=== PATIENT | female | born 1940 | race Caucasian/White ===

== ENCOUNTER 2017-10-20 01:03 | Observation (INO) ==
[2017-10-20] MEDS ORDERED: 0.9 % Sodium Chloride 500 ML IVC ONE (01:23)
[2017-10-20] MEDS ORDERED: Aspirin 81 MG TAB.CHEW PO ONE (01:23)
[2017-10-20 01:30] LABS: Basophils % 0.3 %; Eosinophils # 0.1 K/mcL (0.0-0.6); Eosinophils % 1.2 %; Hematocrit 41.2 % (35.3-44.9); Hemoglobin 13.6 g/dL (11.5-15.4); Immature Granulocytes % 0.2 % (0-4); Lymphocytes % 32.1 %; Mean Corpuscular Hemoglobin 30.8 pg (28.0-33.3); Mean Corpuscular Volume 93.2 fL (83.0-100.0); Mean Platelet Volume 9.9 fL (9.4-12.4); Monocytes # 0.7 K/mcL (0.0-1.3); Monocytes % 7.7 %; Neutrophils # 5.5 K/mcL (1.6-8.9); Platelet Count 268 K/mcL (140-400); Red Blood Count 4.42 M/mcL (3.82-4.97); Red Cell Distribution Width 13.2 % (11.5-14.5); Segmented Neutrophils % 58.5 %
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
[2017-10-20 01:37] LABS: Prothrombin Time 10.8 Seconds (9.4-12.1)
[2017-10-20 01:40] LABS: Activated Partial Thrombo Time 24.6 Seconds (26.0-36.0); BUN/Creatinine Ratio 10 (6-26); Blood Urea Nitrogen 8 mg/dL (8-23); Calcium 9.4 mg/dL (8.6-10.3); Carbon Dioxide 25 mEq/L (23-29); Chloride 110 mEq/L (98-107); Glucose 108 mg/dL (70-105); Osmolality,Calculated 293 (280-300); Potassium 3.5 mEq/L (3.5-5.1); Sodium 142 mEq/L (136-145); eGFR For African Americans > 60 (> 60); eGFR For Non-African Americans > 60 (> 60)
[2017-10-20] MEDS ORDERED: Aspirin 81 MG TAB.CHEW PO STA (02:01)
[2017-10-20 02:02] LABS: Bilirubin,Urine Negative (Negative); Blood,Urine Negative (Negative); Clarity,Urine Clear (Clear); Color,Urine Yellow (Yellow); Glucose,Urine (UA) Normal (Normal); Ketones,Urine Negative (Negative); Leukocyte Esterase,Urine Negative (Negative); Nitrite,Urine Negative (Negative); PH,Urine 7.5 pH Units (5.0-8.0); Protein,Urine Negative (Neg-Trace); Urobilinogen,Urine Normal (Normal)
[2017-10-20] MEDS: Nitroglycerin 0.4 MG TAB.SUBL SL PRN ×2 (03:18→03:24)
[2017-10-20] MEDS ORDERED: Nitroglycerin 1 INCH/GM PACKET TP ONE (03:42)
--- NOTE | 2017-10-20 04:06 | Internal Med History&Physical ---
Date of Encounter: 10/20/17 Time of Encounter: 04:01 Assessment and Plan (1) Hypertensive emergency Current visit: Yes Status: Acute improved with nitro in the ED continue lisinopril and inderal in the a.m avoid lowering BP any further now. Will decrease BP slowly Depending on BP in 24-48 hours, may benefit from additional BP meds (2) Chest pain Current visit: Yes Status: Acute likely related to HTN above. 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 Chavez is a 76 year old female who presents with uncontrolled HTN with CP suspicious for HTN emergency. She has a hx of labile BP and had been taken off lisinopril 40 QD for the last several months due to low normal BP. However, her BP has recently started to climb again in the last 2 weeks which led to her PCP restarting her on lisinopril 40mg QD since the last few days. She takes her BP regularly with most recent reading 150-160 SBP /80-90 DBP. She went to an urgent care several days ago for high BP and was advised to go to the ED if her BP reading remains high again. This past evening at bedtime, she took her BP measuring 180/125. While en-route to the ED, she developed sternal chest tightness measuring 6/10 in intensity. No radiation. Feels like it catches the breathe on inspiration. She was given nitro in the ED which helped the pain and her BP - brought it down to 130 SBP She also takes inderal for fast HR She denies personal or family hx of CAD EKG personally reviewed with rate 67, NSR, LVH features CT/CT angio chest IMPRESSION: 1. No pulmonary embolism. 2. Mild atelectasis in both lower lobes. The lungs are otherwise clear. CT/CT abd pelvis w iv no oral IMPRESSION: No significant abnormalities in the abdomen or pelvis. XR/XR chest 1V portable IMPRESSION: No significant findings in the chest. XR/XR chest 1V portable IMPRESSION: No significant findings in the chest. Past Med Surg Social Fam HX - Past Medical History Medical history: arthritis, diabetes, hyperlipidemia, hypertension, other Psychiatric history: no psych history - Past Surgical History Surgical History: cholecystectomy, hysterectomy, orthopedic, other, sinus surgery - Social History Smoking Status: Never smoker Smokeless Tobacco Status: No Alcohol use: none Drug use: none Internal Medicine - H&P: Meds 8Hr Arthritis Pain 10/17/17 [History] Aspirin 10/17/17 [History] Baby Vitamin D3 10/17/17 [History] Bactroban Oint 10/17/17 [History] Claritin 10/17/17 [History] Flomax 10/17/17 [History] Furosemide [Lasix] 10 mg PO QAM #10 tablet 10/17/17 [Rx] Gabapentin 10/17/17 [History] Inderal LA 10/17/17 [History] [place] 5-325 mg 10/17/17 [History] Promethazine 10/17/17 [History] Protonix 10/17/17 [History] Simvastatin 10/17/17 [History] Stool Softener 10/17/17 [History] Topamax 10/17/17 [History] metFORMIN 10/17/17 [History] 3 Allergy/AdvReac Type Severity Reaction Status Date / Time Chlorothiazide [From Diuril] AdvReac Migraine Verified 10/17/17 19:28 All Systems PM: A 10-system review of systems was performed and is negative for pertinent findings except as documented above in the HPI. Review of systems: ROS 14 point review of systems reviewed as best as possible given presentation. Pertinent positive or negative as per HPI or otherwise reviewed as negative - Constitutional Vitals: Temp Pulse Resp BP Pulse Ox 97.6 F 79 18 152/98 97 10/20/17 01:04 10/20/17 03:28 10/20/17 03:28 10/20/17 03:28 10/20/17 03:28 Exam: General - AAO x 3 Psych - Appropriate affect/speech. No agitation Eyes - MARA. Eye lids intact. No scleral icterus Neuro - No gross peripheral or central neuro deficits on inspection Heart - Sinus. RRR. S1 and S2 present. No added HS/murmurs appreciated. No elevated JVD appreciated. Lung - Adequate air entry b/l, No crackles/wheezes appreciated GI - Soft, non-tender. No hepatosplenomegaly/ascites. BS+ - No CVA/suprapubic tenderness or palpable bladder distension Skin - Intact. No rash/petechiae/ecchymosis. Warm extremities Internal Med - H&P Results - Labs CBC & Chem 7: 10/20/17 01:18 10/20/17 01:18
[2017-10-20] MEDS ORDERED: Naloxone 0.4 MG/ML INJ IVP PRN (04:13)
[2017-10-20] MEDS ORDERED: Dextrose Gel 15 GM/37.5 ML TUBE PO PRN ×2 (04:15)
[2017-10-20] MEDS ORDERED: D5% in Water 1,000 ML IVC PRN (04:15)
[2017-10-20] MEDS ORDERED: *HR* Dextrose 50 % in Water (Syg) 50 ML SYRINGE IVP PRN (04:15)
[2017-10-20] MEDS: Insulin LISPRO 300 UNITS/3 ML VIAL SQ SCH ×3 (09:05→16:32)
[2017-10-20] MEDS: Lisinopril 20 MG TABLET PO SCH (09:23)
[2017-10-20] MEDS: Propranolol LA (24 HR) 60 MG CAP.SA.24H PO SCH (09:23)
[2017-10-20] MEDS ORDERED: Regadenoson 0.4 MG/5 ML SYRINGE IVP ONE (11:11)
[2017-10-20] MEDS ORDERED: ALPRAZolam 0.25 MG TABLET PO PRN (15:38)
--- NOTE | 2017-10-20 15:45 | Event Note ---
Date of Encounter: 10/20/17 Time of Encounter: 15:42 Seen and examined at bedside. Patient denies chest pain at home my exam. She reports increased home stressors and anxiety and she thinks that is intermittent her chest pain. Requesting something for anxiety. No chest pain or shortness of breath all my exam. 1. Chest pain: presented with chest pain that radiated to right arm. In the setting of hypertensive emergency. Serial troponins negative, EKG without acute ST changes. Nuclear stress test negative for ischemia or infarct. Suspect chest pain related to stress, hypertensive emergency. Chest pain improved as BP controlled. Echo pending. Continue ASA 2. Hypertensive emergency: Patient reports SBP's in 200s prior to arrival. BP improved with increasing home propanolol. Monitor BP and titrate PRN 3. Anxiety: Suspect this is contributing to chest pain and possibly increased blood pressure. Patient requesting anxiety medication. Trial low-dose PRN Xanax.
[2017-10-20] MEDS ORDERED: Ondansetron 4 MG/2 ML VIAL IVP PRN (17:45)
[2017-10-20] MEDS ORDERED: Gabapentin 300 MG CAPSULE PO SCH (21:00)
[2017-10-20] MEDS ORDERED: Insulin LISPRO 300 UNITS/3 ML VIAL SQ SCH (21:00)
[2017-10-21 05:49] LABS: Basophils % 0.4 %; Eosinophils # 0.1 K/mcL (0.0-0.6); Eosinophils % 1.2 %; Hematocrit 38.1 % (35.3-44.9); Hemoglobin 12.4 g/dL (11.5-15.4); Immature Granulocytes % 0.2 % (0-4); Lymphocytes # 2.3 K/mcL (0.6-4.6); Lymphocytes % 27.7 %; Mean Corpuscular HGB Conc 32.5 g/dL (31.6-35.5); Mean Corpuscular Hemoglobin 29.9 pg (28.0-33.3); Mean Corpuscular Volume 91.8 fL (83.0-100.0); Mean Platelet Volume 9.9 fL (9.4-12.4); Monocytes # 0.7 K/mcL (0.0-1.3); Monocytes % 8.1 %; Neutrophils # 5.2 K/mcL (1.6-8.9); Platelet Count 259 K/mcL (140-400); Red Blood Count 4.15 M/mcL (3.82-4.97); Red Cell Distribution Width 13.3 % (11.5-14.5); Segmented Neutrophils % 62.4 %
[2017-10-21 05:57] LABS: BUN/Creatinine Ratio 13 (6-26); Blood Urea Nitrogen 8 mg/dL (8-23); Carbon Dioxide 22 mEq/L (23-29); Chloride 112 mEq/L (98-107); Glucose 106 mg/dL (70-105); Osmolality,Calculated 291 (280-300); Potassium 3.2 mEq/L (3.5-5.1); Sodium 141 mEq/L (136-145); eGFR For African Americans > 60 (> 60); eGFR For Non-African Americans > 60 (> 60)
[2017-10-21 07:01] VITALS: BP 144/78
[2017-10-21] MEDS: Insulin LISPRO 300 UNITS/3 ML VIAL SQ SCH (08:12)
[2017-10-21] MEDS: Lisinopril 20 MG TABLET PO SCH (08:14)
[2017-10-21] MEDS: Propranolol LA (24 HR) 60 MG CAP.SA.24H PO SCH (08:14)
--- NOTE | 2017-10-21 09:03 | Discharge Summary ---
Date of Encounter: 10/21/17 Time of Encounter: 09:00 - Discharge Diagnosis (1) Chest pain Priority: Primary Status: Resolved Comments: presented with chest pain that in route to ED; in the setting of hypertension emergency. Chest CTA negative for pulmonary embolism. Serial troponins negative , EKG without acute ST changes. TTE with EF 60%, mild diastolic dysfunction and mild mitral/tricuspid regurgitation. Stress test negative for ischemia/ infarct. Chest pain resolved as BP improved. Suspect chest pain secondary to uncontrolled blood pressure and anxiety. No further cardiac workup indicated at this time. Can follow-up with PCP. Qualifiers: Chest pain type: precordial pain Qualified Code(s): R07.2 - Precordial pain (2) Hypertensive emergency Priority: Primary Status: Acute Comments: known hx hypertension labile BPs. Has been taken off lisinopril for the last several months due to normotensive BP. However BP had recently started to elevate therefore PCP resumed lisinopril 3 days prior to arrival. She monitor his BP at home and SBP was in the 180s therefore she came to ER. BP normalized with resuming home BP medication. Suspect anxiety is contributing to elevated BP. Patient reports BP tends to elevate in the evening time. Advised to continue home BP medication regimen, taking propanolol in the morning and lisinopril in the evening. Patient monitors BP regularly at home and advised to return to ED if SBP sustaining 180 or greater. Recommend follow-up with PCP within one week for BP recheck (3) Anxiety Priority: Primary Status: Acute Comments: Patient reports increased stress/anxiety at home. She thinks this is contributing to elevated blood pressure. Symptoms improved with low-dose Xanax. Has follow-up with PCP on 10/24/2017; will discharge with 4 day Rx to bridge her to PCP appointment. (4) Thyroid nodule Priority: Secondary Status: Chronic Comments: Incidental finding; chest CTA with 7mm right thyroid nodule. TSH normal. Can follow-up with PCP outpatient (5) Diabetes mellitus Priority: Secondary Status: Chronic Comments: per hx. Blood sugars controlled. Continue home diabetes medication regimen. Qualifiers: Diabetes mellitus type: type 2 Diabetes mellitus complication status: without complication Diabetes mellitus shelter insulin use: without licensed social worker use Qualified Code(s): E11.9 - Type 2 diabetes mellitus without complications - Discharge Medications Prescriptions: ALPRAZolam [Xanax 0.25 MG Tablet] 0.25 mg PO BID PRN #8 tablet PRN Reason: Anxiety Home Medications: Cyclosporine [Restasis] 1 drop OP BID 10/20/17 [History] Gabapentin [Neurontin] 600 mg PO DAILY 10/20/17 [History] Lisinopril [Zestril] 40 mg PO DAILY 10/20/17 [History] Loratadine [Claritin] 10 mg PO DAILY 10/20/17 [History] Metformin HCl [Metformin HCl ER] 500 mg PO BID 10/20/17 [History] Metoclopramide HCl 5 mg PO TID 10/20/17 [History] Pantoprazole Sodium 40 mg PO DAILY 10/20/17 [History] Pilocarpine HCl [Salagen] 5 mg PO TID 10/20/17 [History] Propranolol HCl [Innopran Xl] 80 mg PO DAILY 10/20/17 [History] Simvastatin [Zocor] 40 mg PO HS 10/20/17 [History] Solifenacin Succinate [Vesicare] 10 mg PO DAILY 10/20/17 [History] Tamsulosin [Flomax] 0.4 mg PO DAILY 10/20/17 [History] Topiramate [Topamax] 25 mg PO BID 10/20/17 [History] ALPRAZolam [Xanax 0.25 MG Tablet] 0.25 mg PO BID PRN #8 tablet 10/21/17 [Rx] Allergies/Adverse Reactions: 3 Allergy/AdvReac Type Severity Reaction Status Date / Time Chlorothiazide [From Diuril] AdvReac Migraine Verified 10/17/17 19:28 Procedures/tests Complete & Pending: Procedures Performed prior 72 hours Category Date Time Status NM mary ann perf SPECT multi [NM] Routine Exams 10/20/17 08:08 Taken EV echocardiogram Routine Y 10/20/17 08:08 Completed SP pharm nuclear stress Routine Y 10/20/17 08:07 Completed Date of admission: 10/20/17 03:26 Primary care physician: Ehsan Roman MD Discharging clinician: Leann Murphy Anticipated date of discharge: 10/21/17 - Patient Status Disposition: Home, Self-Care Condition: Good Functional capacity at discharge: independent ambulation Overall status at discharge: patient is back to baseline - Discharge Instructions Instructions: Alprazolam (By mouth), Chest Pain (DC), Generalized Anxiety Disorder (DC), Thyroid Nodules (DC), Hypertension (DC), Anxiety (DC) Follow Up With: Ehsan Roman MD [Primary Care Provider] - (Please call the office to make a follow up appt.) - Diet and Activity Activity: increase activity as tolerated Diet: diabetic diet, low fat, low cholesterol Interval History: Seen and examined ta bedside; says she had an uneventful night and slept well. She feels back to baseline and would like to discharge home today if possible. Says Lucy helped her sleep and help with anxiety. He reports blood pressure increases in the evening time; advised patient she could take Inderal in the morning and lisinopril in the evening or split lisinopril in half and take 20 mg in the morning and 20 mg in evening. Patient monitors blood pressure on a regular basis and advised to return to ED if SBP sustains greater than 180 and or chest pain/SOB recurs. Hospital course: See assessment and plan for hospital course - Time Spent with Patient Total time spent providing and/or coordinating discharge services: - Constitutional Vitals: Temp Pulse Resp BP Pulse Ox 98.0 F 72 16 144/78 96 10/21/17 06:54 10/21/17 06:54 10/21/17 06:54 10/21/17 06:54 10/21/17 06:54 General appearance: Present: A&O X 3, no acute distress - Head Head exam: Present: atraumatic, normocephalic - Eye Eye exam: Present: PERRL, conjuntiva pink, sclera anicteric Pupils: Present: PERRL - Neck Neck exam general surgery: Present: supple, trachea midline. Absent: lymphadenopathy - Respiratory Respiratory exam: Present: CTAB. Absent: accessory muscle use, rales, rhonchi, wheezes - Cardiovascular Cardiovascular exam: Present: RRR, +S1, +S2. Absent: diastolic murmur, gallop, rubs, systolic murmur - GI/Abdominal GI/Abdominal exam: Present: normal bowel sounds, soft, no peritoneal signs. Absent: distended, tenderness - Extremities Exam Extremities exam: Present: warm, radial pulses palpable and symmetrical. Absent : calf tenderness, cyanotic, pedal edema - Neurological Exam Neurological exam: Present: CN II-XII intact, oriented X3, no focal deficits. Absent: pronater drift, facial droop, speech deficit - Skin Skin exam: Present: dry, intact
[2017-10-21 10:00] LABS: Thyroid Stimulating Hormone 3.398 mcIU/mL (0.340-5.600)
--- NOTE | 2017-10-23 14:06 | Electrocardiograph Report ---
[address] [address] Test Date: 2017-10-20 Pat Name: Ting Chavez Department: [id number] Room: 3B45 Gender: F [employer] Firm: [employer] : [id number] Requested By: German Armenta Order Number: [id number] Reading MD: Real Herndon Measurements Intervals Valders Rate: 67 P: 64 CO: 175 QRS: 0 QRSD: 120 T: 6 QT: 386 QTc: 402 Interpretive Statements SINUS RHYTHM MODERATE INTRAVENTRICULAR CONDUCTION DELAY MINIMAL VOLTAGE CRITERIA FOR LVH, CONSIDER NORMAL VARIANT Electronically Signed On 10-23-2017 14:05:18 EST by Real Herndon
== END 2017-10-21 10:27 | disposition home or self-care (01) ==
LOC: 3BNU 01:03 → EMEROO 01:03 → 3BNU 04:18
PROVIDERS: ADMIT Internal Medicine Hematology & Oncology; ATTEND Registered Nurse

== ENCOUNTER 2019-03-31 07:35 | Observation (INO) ==
[2019-03-31] MEDS ORDERED: GI Cocktail 40 ML EACH PO ONE (08:07)
[2019-03-31 08:28] LABS: Basophils % 0.4 %; Eosinophils # 0.1 K/mcL (0.0-0.6); Eosinophils % 1.5 %; Hemoglobin 12.5 g/dL (11.5-15.4); Immature Granulocytes % 0.3 % (0-4); Lymphocytes # 1.9 K/mcL (0.6-4.6); Lymphocytes % 25.2 %; Mean Corpuscular HGB Conc 32.1 g/dL (31.6-35.5); Mean Corpuscular Hemoglobin 30.3 pg (28.0-33.3); Mean Corpuscular Volume 94.7 fL (83.0-100.0); Mean Platelet Volume 10.3 fL (9.4-12.4); Monocytes # 0.6 K/mcL (0.0-1.3); Monocytes % 7.9 %; Neutrophils # 4.8 K/mcL (1.6-8.9); Platelet Count 233 K/mcL (140-400); Red Blood Count 4.12 M/mcL (3.82-4.97); Red Cell Distribution Width 13.1 % (11.5-14.5); Segmented Neutrophils % 64.7 %; White Blood Count 7.3 K/mcL (4.3-11.1)
[2019-03-31 08:44] LABS: BUN/Creatinine Ratio 16 (6-26); Blood Urea Nitrogen 14 mg/dL (8-23); Calcium 9.3 mg/dL (8.6-10.3); Carbon Dioxide 26 mEq/L (23-29); Chloride 111 mEq/L (98-107); Glucose 109 mg/dL (70-105); Lipase 50 Units/L (11-82); Osmolality,Calculated 299 (280-300); Sodium 144 mEq/L (136-145); Troponin I < 0.03 ng/mL (< 0.04); eGFR For African Americans > 60 (> 60); eGFR For Non-African Americans > 60 (> 60)
--- NOTE | 2019-03-31 08:55 | Emergency Department Note ---
Disposition Clinical Impression: Atypical chest pain Chest pain Qualifiers: Chest pain type: unspecified Qualified Code(s): R07.9 - Chest pain, unspecified Disposition: Home, Self-Care Condition: Fair Referrals: Ehsan Roman MD [Primary Care Provider] - Forms: ED Satisfaction Letter Time of Disposition: 09:57 Chest Pain HPI - General Chief Complaint: ED Chest Pain Stated Complaint: CP Time Seen by Provider: 03/31/19 07:49 Source: patient Mode of arrival: ambulatory Limitations: no limitations Vital Signs Reviewed: Yes Nursing Notes Reviewed: Yes - History of Present Illness HPI Narrative: 78-year-old female presented to the emergency department complaining of chest pain. She says is in the center of her chest going up into her throat. Said it woke her up from sleep around 2 AM. She says that the pain is described as 6 out of 10 comes and goes currently right now she is not having it. She describes as a burning sensation. Does have history of pancreatitis from unknown causes said this does not feel like that. She does have history of ACS has had a catheter but no stent placement. Said does not feel like that. She has not been a long car rides or long plane rides. She does not have any history of pulmonary embolisms back in 1970 did have a DVT but otherwise has had no other problems this was a provoked due to hospitalization. She is not on any hormones no cancer diagnoses. Does have history of hypertension as well as diabetes. Otherwise patient has no other complaints at this time. Does not change with exertion. She is not short of breath. Severity scale (1-10): 6 - Related Data Home Medications Medication Instructions Recorded Confirmed Cyclosporine [Restasis] 1 drop OP BID 10/20/17 10/20/17 Gabapentin [Neurontin] 600 mg PO DAILY 10/20/17 10/20/17 Lisinopril [Zestril] 40 mg PO DAILY 10/20/17 10/20/17 Loratadine [Claritin] 10 mg PO DAILY 10/20/17 10/20/17 Metformin HCl [Metformin ER 500 mg PO BID 10/20/17 10/20/17 Gastric] Metoclopramide HCl 5 mg PO TID 10/20/17 10/20/17 Pantoprazole Sodium 40 mg PO DAILY 10/20/17 10/20/17 Pilocarpine HCl [Salagen] 5 mg PO TID 10/20/17 10/20/17 Propranolol HCl [Innopran Xl] 80 mg PO DAILY 10/20/17 10/20/17 Simvastatin [Zocor] 40 mg PO HS 10/20/17 10/20/17 Solifenacin Succinate [Vesicare] 10 mg PO DAILY 10/20/17 10/20/17 Tamsulosin [Flomax] 0.4 mg PO DAILY 10/20/17 10/20/17 Topiramate [Topamax] 25 mg PO BID 10/20/17 10/20/17 Previous Rx's Medication Instructions Recorded ALPRAZolam [Xanax 0.25 MG Tablet] 0.25 mg PO BID PRN #8 tablet 10/21/17 Allergies Allergy/AdvReac Type Severity Reaction Status Date / Time Chlorothiazide [From Diuril] AdvReac Migraine Verified 10/17/17 19:28 All systems ED: reviewed and negative except as stated. Review of Systems: As Per HPI Chest Pain PMH - Past Medical History Medical history: Reports: arthritis, diabetes, hyperlipidemia, hypertension Surgical history: Reports: cholecystectomy, hysterectomy, orthopedic, other, sinus surgery Psychiatric history: Reports: no psych history DIRECTOR [employer] history: Reports: non-contributory - Social History Smoking Status: Never smoker Alcohol use: Reports: none Drug use: Reports: none Physical Exam - General Limitations: no limitations General appearance: alert, in no apparent distress - Head Head exam: atraumatic, normocephalic, normal inspection - Eye Eye exam: Present: normal appearance, PERRL, EOMI - ENT ENT exam: normal exam, normal oropharynx, mucous membranes moist - Neck Neck exam: Present: normal inspection, full ROM, trachea midline - Chest Chest inspection: Present: normal inspection, symmetric chest wall rise - Respiratory Respiratory exam: Present: normal lung sounds bilaterally - Cardiovascular Cardiovascular exam: Present: regular rate, normal rhythm, normal heart sounds - Abdominal Exam Abdominal exam: Present: soft, Non-Tender, normal bowel sounds. Absent: tenderness, distention, guarding, rebound, rigidity - Extremities Exam Extremities exam: Present: normal inspection, full ROM. Absent: tenderness, pedal edema - Back Exam Back exam: Present: normal inspection, full ROM. Absent: tenderness, CVA tenderness (R), CVA tenderness (L) - Neurological Exam Neurological exam: Present: alert, oriented X3 - Skin Skin exam: Present: warm, dry, intact, normal color Course Course Narrative: Due to patient's history of finger otitis media lipase was CBC BMP troponin with the normal chest pain workup including EKG and chest x-ray. Patient okay with this plan. We will give patient GI cocktail as this seems to be reflux in etiology. Disposition pending results. Vital Signs Temperature 98.1 F 03/31/19 07:43 Pulse Rate 80 03/31/19 07:43 Respiratory Rate 18 03/31/19 07:43 Blood Pressure 175/109 03/31/19 07:43 O2 Sat by Pulse Oximetry 96 03/31/19 07:43 Temperature 98.1 F 03/31/19 07:43 Pulse Rate 68 03/31/19 08:58 Respiratory Rate 18 03/31/19 08:58 Blood Pressure 168/73 03/31/19 08:58 O2 Sat by Pulse Oximetry 98 03/31/19 08:58 Oxygen Delivery Oxygen Delivery Room Air Chest Pain - [facility] Narrative Medical decision making narrative: 78-year-old female presents to the emergency room with chest pain. She was given aspirin as well as nitroglycerin. She also received a GI cocktail as she was unsure if this is reflux in nature. EKG had no acute changes. Troponin was negative. Due to patient's history of diabetes as well as hypertension and the story of it waking her up from sleep and worsen or she exerts herself. I feel that admission is warranted. Patient agrees and said that she does want to be admitted. She does have heart score 5. I spoke with the hospitalist Dr. Hurtado who agreed to admit the patient to their service. Patient admitted in stable condition. Chest X-Ray 03/31/19 07:59 IMPRESSION: No evidence for acute cardiopulmonary process. D/ / Nils Herrera MD / Nils Herrera MD Interpreting Provider: Nils Herrera MD - Medical Records Medical records reviewed: Yes I reviewed the patient's medical records. - Lab Data Lab results reviewed: Yes I reviewed the patient's lab results. Result diagrams: 03/31/19 08:04 03/31/19 08:04 Lab Results 03/31/19 03/31/19 Range/Units 08:04 08:04 WBC 7.3 (4.3-11.1) K/mcL RBC 4.12 (3.82-4.97) M/mcL Hgb 12.5 (11.5-15.4) g/dL Hct 39.0 (35.3-44.9) % MCV 94.7 (83.0-100.0) fL MCH 30.3 (28.0-33.3) pg MCHC 32.1 (31.6-35.5) g/dL RDW 13.1 (11.5-14.5) % Plt Count 233 (140-400) K/mcL MPV 10.3 (9.4-12.4) fL Immature Gran % 0.3 (0-4) % Seg Neutrophils % 64.7 % Lymphocytes % 25.2 % Monocytes % 7.9 % Eosinophils % 1.5 % Basophils % 0.4 % Neutrophils # 4.8 (1.6-8.9) K/mcL Lymphocytes # 1.9 (0.6-4.6) K/mcL Monocytes # 0.6 (0.0-1.3) K/mcL Eosinophils # 0.1 (0.0-0.6) K/mcL Basophils # 0.0 (0.0-0.2) K/mcL Sodium 144 (136-145) mEq/L Potassium 4.0 (3.5-5.1) mEq/L Chloride 111 H (98-107) mEq/L Carbon Dioxide 26 (23-29) mEq/L BUN 14 (8-23) mg/dL Creatinine 0.88 (0.60-1.20) mg/dL Est GFR ( Amer) > 60 (> 60) Est GFR (Non-Af Amer) > 60 (> 60) BUN/Creatinine Ratio 16 (6-26) Glucose 109 H (70-105) mg/dL Calculated Osmolality 299 (280-300) Calcium 9.3 (8.6-10.3) mg/dL Troponin I < 0.03 (< 0.04) ng/mL Lipase 50 (11-82) Units/L - Radiology Data Radiology results reviewed: Yes I reviewed the patient's radiology results. - EKG Data EKG attestation: Yes I reviewed and interpreted this EKG. EKG results narrative: EKG done at 0 741 review myself and attending shows sinus bradycardia at a rate of 59, IL interval 193, QRS 128, QTC 419. No acute ST changes no acute T-wave changes no other signs of ischemia. Does have right bundle-branch block no other blocks no hypertrophy or heart strain. No WPW/forgot her/HOCM. Unchanged when compared with old EKG done 10/20/17 Heart Score - Score History: Moderately Suspicious EKG: Non Specific repolarisation Disturbance Age: Greater than 65 Risk Factors: 1-2 risk factors Troponin: Less than normal limit HEART Score Total: 5
--- NOTE | 2019-03-31 08:57 | Emergency Department Note ---
Disposition Clinical Impression: Atypical chest pain Chest pain Qualifiers: Chest pain type: unspecified Qualified Code(s): R07.9 - Chest pain, unspecified Disposition: Home, Self-Care Condition: Fair Referrals: Ehsan Roman MD [Primary Care Provider] - Forms: ED Satisfaction Letter Time of Disposition: 10:55 General Adult HPI - General Chief complaint: ED Chest Pain Stated complaint: CP Time Seen by Provider: 03/31/19 07:49 Source: patient Limitations: no limitations - History of Present Illness Pain Scale: 6 - Related Data Home Medications Medication Instructions Recorded Confirmed Cyclosporine [Restasis] 1 drop OP BID 10/20/17 03/31/19 Gabapentin [Neurontin] 600 mg PO DAILY 10/20/17 03/31/19 Lisinopril [Zestril] 40 mg PO DAILY 10/20/17 03/31/19 Loratadine [Claritin] 10 mg PO DAILY 10/20/17 03/31/19 Metformin HCl [Metformin ER 500 mg PO BID 10/20/17 03/31/19 Gastric] Metoclopramide HCl 5 mg PO TID 10/20/17 10/20/17 Pantoprazole Sodium 40 mg PO DAILY 10/20/17 10/20/17 Pilocarpine HCl [Salagen] 5 mg PO TID 10/20/17 03/31/19 Propranolol HCl [Innopran Xl] 80 mg PO DAILY 10/20/17 10/20/17 Simvastatin [Zocor] 40 mg PO HS 10/20/17 03/31/19 Solifenacin Succinate [Vesicare] 10 mg PO DAILY 10/20/17 03/31/19 Tamsulosin [Flomax] 0.4 mg PO DAILY 10/20/17 10/20/17 Topiramate [Topamax] 25 mg PO BID 10/20/17 03/31/19 Previous Rx's Medication Instructions Recorded ALPRAZolam [Xanax 0.25 MG Tablet] 0.25 mg PO BID PRN #8 tablet 10/21/17 Allergies Allergy/AdvReac Type Severity Reaction Status Date / Time Chlorothiazide [From Diuril] AdvReac Migraine Verified 10/17/17 19:28 Past Medical History - Past Medical History Medical history: Reports: arthritis, diabetes, hyperlipidemia, hypertension Surgical history: Reports: cholecystectomy, hysterectomy, orthopedic, other, sinus surgery Psychiatric history: Reports: no psych history [employer] DIRECT[employer] history: Reports: non-contributory - Social History Smoking Status: Never smoker Smokeless Tobacco Status: No Alcohol use: Reports: none Drug use: Reports: none Physical Exam - General Limitations: no limitations General appearance: alert, in no apparent distress Course Vital Signs Temperature 98.1 F 03/31/19 07:43 Pulse Rate 80 03/31/19 07:43 Respiratory Rate 18 03/31/19 07:43 Blood Pressure 175/109 03/31/19 07:43 O2 Sat by Pulse Oximetry 96 03/31/19 07:43 Temperature 98.1 F 03/31/19 07:43 Pulse Rate 70 03/31/19 10:20 Respiratory Rate 18 03/31/19 10:20 Blood Pressure 167/83 03/31/19 10:20 O2 Sat by Pulse Oximetry 96 03/31/19 10:20 Oxygen Delivery Oxygen Delivery Room Air Medical Decision Making - Lab Data Result diagrams: 03/31/19 08:04 03/31/19 08:04 Lab Results 03/31/19 03/31/19 Range/Units 08:04 08:04 WBC 7.3 (4.3-11.1) K/mcL RBC 4.12 (3.82-4.97) M/mcL Hgb 12.5 (11.5-15.4) g/dL Hct 39.0 (35.3-44.9) % MCV 94.7 (83.0-100.0) fL MCH 30.3 (28.0-33.3) pg MCHC 32.1 (31.6-35.5) g/dL RDW 13.1 (11.5-14.5) % Plt Count 233 (140-400) K/mcL MPV 10.3 (9.4-12.4) fL Immature Gran % 0.3 (0-4) % Seg Neutrophils % 64.7 % Lymphocytes % 25.2 % Monocytes % 7.9 % Eosinophils % 1.5 % Basophils % 0.4 % Neutrophils # 4.8 (1.6-8.9) K/mcL Lymphocytes # 1.9 (0.6-4.6) K/mcL Monocytes # 0.6 (0.0-1.3) K/mcL Eosinophils # 0.1 (0.0-0.6) K/mcL Basophils # 0.0 (0.0-0.2) K/mcL Sodium 144 (136-145) mEq/L Potassium 4.0 (3.5-5.1) mEq/L Chloride 111 H (98-107) mEq/L Carbon Dioxide 26 (23-29) mEq/L BUN 14 (8-23) mg/dL Creatinine 0.88 (0.60-1.20) mg/dL Est GFR ( Amer) > 60 (> 60) Est GFR (Non-Af Amer) > 60 (> 60) BUN/Creatinine Ratio 16 (6-26) Glucose 109 H (70-105) mg/dL Calculated Osmolality 299 (280-300) Calcium 9.3 (8.6-10.3) mg/dL Troponin I < 0.03 (< 0.04) ng/mL Lipase 50 (11-82) Units/L Attestation Statement - Attestation Attestation: I examined this patient and my medical decision-making was reviewed with the Resident Physician. I agree with the documented findings, disposition and treatment plan as described except to the extent set forth below. Patient presents to the ED with a chief complaint of chest pain. Patient is describing sharp pain in the center of her chest radiating to her back and right shoulder. Onset at 2 AM. Woke her up. She had 4 more episodes and is currently having 5 out of 10 pain. History of pancreatitis, but she states this feels different. No cardiac history. Last heart catheter was 18 years ago. She does have hypertension and diabetes. On exam she is in no acute distress. Heart regular lungs clear. Abdomen is soft and nontender. Plan. Cardiac workup. GI cocktail. EKG reviewed with the resident. There are no acute ischemic changes. Patient is almost pain-free after 1 nitroglycerin. She declines any further doses. She is admitted to medicine for further cardiac workup. Chest X-Ray 03/31/19 07:59 IMPRESSION: No evidence for acute cardiopulmonary process. D/ / Nils Herrera MD / Nils Herrera MD Interpreting Provider: Nils Herrera MD
[2019-03-31] MEDS ORDERED: Nitroglycerin 0.4 MG TAB.SUBL SL PRN (09:40)
[2019-03-31] MEDS ORDERED: Aspirin 81 MG TAB.CHEW PO ONE (09:40)
--- NOTE | 2019-03-31 10:18 | Internal Med History&Physical ---
Date of Encounter: 03/31/19 Time of Encounter: 10:18 Internal Medicine - H&P: HPI Chief complaint: CP History of present illness: 78-year-old female with best medical history of arthritis, diabetes, hyperlipidemia, hypertension who presented to the emergency department complaining of chest pain. The patient described the pain as burning in character at the middle of her chest and radiating to her throat. The patient has history of acute coronary syndrome, she was evaluated by the ER staff and her troponin first set was within normal limit. Her EKG was significant ST-T wave changes, the patient was admitted for further evaluation and management to rule out acute coronary syndrome. Past Med Surg Social Fam HX - Past Medical History Medical history: arthritis, diabetes, hyperlipidemia, hypertension Additional medical history: recurrent pancreatitis, occasional irregular heartbeat, neuropathy Psychiatric history: no psych history - Past Surgical History Surgical History: cholecystectomy, hysterectomy, orthopedic, other, sinus surgery Additional surgical history: back surgery x4, rectal rebuild - Social History Smoking Status: Never smoker Smokeless Tobacco Status: No Alcohol use: none Drug use: none - Family History Mother Living Status: Hx Family Cardiac Disorders: No Hx Family Respiratory Disorders: No Hx Family Cancer: No Hx Family GI Disorders: Yes (septic intestine) Hx Family Endocrine Disorder: Yes (mild dm) Hx Family Neuromuscular Disorders: No Hx Family Neurologic Disorders: No Hx Family HEENT Disorders: No Hx Family Autoimmune Disorders: No Father Living Status: Hx Family Cardiac Disorders: No Hx Family Respiratory Disorders: No Hx Family Cancer: Yes (prostate) Hx Family Endocrine Disorder: No Hx Family Neuromuscular Disorders: No Hx Family Neurologic Disorders: No Hx Family HEENT Disorders: No Hx Family Autoimmune Disorders: No Internal Medicine - H&P: Meds Cyclosporine [Restasis] 1 drop OP BID 10/20/17 [History] Gabapentin [Neurontin] 600 mg PO DAILY 10/20/17 [History] Lisinopril [Zestril] 40 mg PO DAILY 10/20/17 [History] Loratadine [Claritin] 10 mg PO DAILY 10/20/17 [History] Metformin HCl [Metformin ER Gastric] 500 mg PO BID 10/20/17 [History] Metoclopramide HCl 5 mg PO TID 10/20/17 [History] Pantoprazole Sodium 40 mg PO DAILY 10/20/17 [History] Pilocarpine HCl [Salagen] 5 mg PO TID 10/20/17 [History] Propranolol HCl [Innopran Xl] 80 mg PO DAILY 10/20/17 [History] Simvastatin [Zocor] 40 mg PO HS 10/20/17 [History] Solifenacin Succinate [Vesicare] 10 mg PO DAILY 10/20/17 [History] Tamsulosin [Flomax] 0.4 mg PO DAILY 10/20/17 [History] Topiramate [Topamax] 25 mg PO BID 10/20/17 [History] ALPRAZolam [Xanax 0.25 MG Tablet] 0.25 mg PO BID PRN #8 tablet 10/21/17 [Rx] Allergy/AdvReac Type Severity Reaction Status Date / Time Chlorothiazide [From Diuril] AdvReac Migraine Verified 10/17/17 19:28 All Systems PM: A 10-system review of systems was performed and is negative for pertinent findings except as documented above in the HPI. - Constitutional Vitals: Temp Pulse Resp BP Pulse Ox 98.1 F 72 18 164/103 97 03/31/19 07:43 03/31/19 10:16 03/31/19 10:16 03/31/19 10:16 03/31/19 10:16 General appearance: Present: A&O X 3 Exam: ` - Head Head exam: Present: atraumatic, normocephalic - Neck Neck exam general surgery: Present: supple, trachea midline. Absent: lymphadenopathy - Respiratory Respiratory exam: Present: CTAB. Absent: accessory muscle use, rales, rhonchi, wheezes - Cardiovascular Cardiovascular exam: Present: RRR, +S1, +S2. Absent: diastolic murmur, gallop, rubs, systolic murmur - GI/Abdominal GI/Abdominal exam: Present: normal bowel sounds, soft, no peritoneal signs. Absent: distended, tenderness - Extremities Exam Extremities exam: Present: warm, radial pulses palpable and symmetrical. Absent: calf tenderness, cyanotic, pedal edema Internal Med - H&P Results - Labs CBC & Chem 7: 04/01/19 04:06 04/01/19 04:06 Labs: Short CBC 03/31/19 Range/Units 08:04 WBC 7.3 (4.3-11.1) K/mcL Hgb 12.5 (11.5-15.4) g/dL Hct 39.0 (35.3-44.9) % Plt Count 233 (140-400) K/mcL Neutrophils # 4.8 (1.6-8.9) K/mcL BMP 03/31/19 08:04 Sodium 144 Potassium 4.0 Chloride 111 H Carbon Dioxide 26 BUN 14 Creatinine 0.88 Glucose 109 H Calcium 9.3 Cardiac Enzymes 03/31/19 Range/Units 08:04 Troponin I < 0.03 (< 0.04) ng/mL - Impressions ITS Impressions Chest X-Ray 03/31/19 07:59 IMPRESSION: No evidence for acute cardiopulmonary process. D/ / Nils Herrera MD / Nils Herrera MD Interpreting Provider: Nils Herrera MD - Assessment and Plan (1) Chest pain Status: Resolved Assessment and plan: - Chest pain R/o ACS DD *CAD *Muskuloskeletal CP - myofascial strain, costochondritis *GERD *Esophageal spasm *Pericarditis - unlikely *Pneumonia - no infiltrate on CXR PLAN: - cardiac enzymes x 2 q 8 hr - EKG now and in AM - ASA - O2 by NC to keep SpO2 greater than 92% - UA - CBCD, BMP in AM - Fasting lipids - Tylenol 650 mg PO q 4-6 hr PRN headache - Home meds (check list) - 2D Echo Qualifiers: Chest pain type: precordial pain Qualified Code(s): R07.2 - Precordial pain (2) Hypertension Status: Chronic Assessment and plan: we will continue home medication,monitor blood pressure while inpatient and adjust regimen if indicated Qualifiers: Hypertension type: essential hypertension Qualified Code(s): I10 - Essential (primary) hypertension (3) Diabetic acidosis, type II Status: Chronic Assessment and plan: we will start the patient on sliding scale with moderate coverage Qualifiers: Diabetes mellitus half-way insulin use: without half-way use Diabetes mellitus complication detail: without coma Qualified Code(s): E11.10 - Type 2 diabetes mellitus with ketoacidosis without coma (4) Anxiety Status: Chronic Assessment and plan: we'll continue home medication (5) DVT prophylaxis Status: Acute Assessment and plan: we'll start the patient on heparin 5000 twice a day - Time Spent With Patient Total time spent is greater than 50% in coordination of care (as documented) at patient's floor/unit and/or counseling patient:
[2019-03-31] MEDS ORDERED: *HR* HYDROcodone/Acet 5/325 mg TABLET PO PRN (10:21)
[2019-03-31] MEDS ORDERED: Naloxone 0.4 MG/ML INJ IVP PRN (10:21)
[2019-03-31] MEDS ORDERED: Ondansetron 4 MG/2 ML VIAL IVP PRN (10:21)
[2019-03-31] MEDS ORDERED: Acetaminophen 325 MG TABLET PO PRN (10:21)
[2019-03-31] MEDS ORDERED: Dextrose Gel 15 GM/37.5 ML TUBE PO PRN ×2 (20:31)
[2019-03-31] MEDS ORDERED: D5% in Water 1,000 ML IVC PRN (20:31)
[2019-03-31] MEDS ORDERED: *HR* Dextrose 50 % in Water (Syg) 50 ML SYRINGE IVP PRN (20:31)
[2019-03-31] MEDS ORDERED: Insulin LISPRO 300 UNITS/3 ML VIAL SQ SCH (21:00)
[2019-03-31 21:48] LABS: Estimated Average Glucose 131 mg/dl; Hemoglobin A1C 6.2 %
[2019-03-31] MEDS ORDERED: Isovue-370 500 ML BOTTLE IVP ONE (23:18)
--- NOTE | 2019-04-01 02:58 | Event Note ---
Date of Encounter: 03/31/19 Time of Encounter: 22:07 Alerted by patient's nurse CLARIBEL Samaniego that patient had been admitted for chest pain. Patient had mentioned to nurse that she had midsternal pain. Nurse reported a knot in the abdomen that was painful on palpation. Went to see the pt. who was resting in bed. On examination, pt. has tender area approximately 3- 4 inches below the xiphoid process. Patient reported history of aneurysm and family but no personal history. Stat dissection study ordered to r/o AAA which showed there is no aortic aneurysm or dissection. There is no branch vessel stenosis. No acute abnormalities are identified in the solid or hollow viscera. There is no adenopathy or mesenteric stranding. In the pelvis. There is no aneurysm, dissection, or significant stenosis. The bladder is grossly negative. The patient is status post hysterectomy. There is no free fluid. Nurse instructed to continue monitoring the pt. closely overnight and alert me immediately of any adverse changes.
[2019-04-01 05:12] LABS: Basophils % 0.3 %; Eosinophils # 0.1 K/mcL (0.0-0.6); Hematocrit 40.1 % (35.3-44.9); Hemoglobin 12.9 g/dL (11.5-15.4); Immature Granulocytes % 0.3 % (0-4); Lymphocytes # 1.9 K/mcL (0.6-4.6); Lymphocytes % 26.9 %; Mean Corpuscular HGB Conc 32.2 g/dL (31.6-35.5); Mean Corpuscular Hemoglobin 30.6 pg (28.0-33.3); Mean Corpuscular Volume 95.2 fL (83.0-100.0); Mean Platelet Volume 10.7 fL (9.4-12.4); Monocytes # 0.5 K/mcL (0.0-1.3); Monocytes % 7.6 %; Neutrophils # 4.5 K/mcL (1.6-8.9); Platelet Count 238 K/mcL (140-400); Red Blood Count 4.21 M/mcL (3.82-4.97); Red Cell Distribution Width 12.8 % (11.5-14.5); Segmented Neutrophils % 62.9 %; White Blood Count 7.1 K/mcL (4.3-11.1)
[2019-04-01 05:18] LABS: Prothrombin Time 11.6 Seconds (9.4-12.1)
[2019-04-01 05:21] LABS: Activated Partial Thrombo Time 26.1 Seconds (26.0-36.0)
[2019-04-01 05:30] LABS: Alanine Aminotransferase 42 Units/L (7-52); Albumin 3.8 g/dL (3.5-5.7); Albumin/Globulin Ratio 1.3 (1.1-2.2); Alkaline Phosphatase 109 Units/L (34-104); Aspartate Amino Transferase 45 Units/L (13-39); BUN/Creatinine Ratio 15 (6-26); Bilirubin,Total 0.3 mg/dL (0.3-1.0); Blood Urea Nitrogen 12 mg/dL (8-23); Calcium 9.1 mg/dL (8.6-10.3); Carbon Dioxide 22 mEq/L (23-29); Chloride 111 mEq/L (98-107); Chol/HDL Ratio 4.4 (0-4.9); Cholesterol 164 mg/dL (< 200); Globulin 2.9 g/dL (2.4-3.5); Glucose 122 mg/dL (70-105); HDL Cholesterol 37 mg/dL (40-59); LDL Cholesterol,Calculated 51 mg/dL (0-99); Magnesium 1.8 mg/dL (1.6-2.6); Osmolality,Calculated 291 (280-300); Phosphorous 3.7 mg/dL (2.7-4.5); Potassium 3.8 mEq/L (3.5-5.1); Sodium 140 mEq/L (136-145); Total Protein 6.7 g/dL (6.4-8.9); Triglycerides 378 mg/dL (< 150); eGFR For African Americans > 60 (> 60); eGFR For Non-African Americans > 60 (> 60)
[2019-04-01] MEDS ORDERED: Regadenoson 0.4 MG/5 ML SYRINGE IVP ONE ×2 (07:34→07:49)
[2019-04-01] MEDS: Insulin LISPRO 300 UNITS/3 ML VIAL SQ SCH ×2 (10:11→11:47)
[2019-04-01 10:25] VITALS: BP 167/72
[2019-04-01] MEDS ORDERED: ALPRAZolam 0.25 MG TABLET PO PRN (12:47)
[2019-04-01] MEDS ORDERED: Lisinopril 20 MG TABLET PO SCH (13:00)
--- NOTE | 2019-04-01 13:16 | Discharge Summary ---
- NOTES TO OUTPATIENT PROVIDER Notes to Outpatient Provider: Pt presented with chest discomfort. Stress test negative. Increased Protonix for a few days. Orders not resulted at time of discharge: Pending orders 03/31/19 20:33 NM mary ann perf SPECT multi [NM] Routine Date of Encounter: 04/01/19 Time of Encounter: 13:00 - Discharge Diagnosis (1) Chest pain Priority: Primary Status: Resolved Qualifiers: Chest pain type: precordial pain Qualified Code(s): R07.2 - Precordial pain (2) Hypertension Priority: Secondary Status: Chronic Qualifiers: Hypertension type: essential hypertension Qualified Code(s): I10 - Essential (primary) hypertension (3) Anxiety Priority: Secondary Status: Chronic (4) Diabetes mellitus Priority: Secondary Status: Chronic Qualifiers: Diabetes mellitus type: type 2 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 Chavez is a 78 year old female with hx of HTN and DM presented with chest discomfort and placed in observation. Ms Chavez presented to ED with complaints of chest discomfort. She had severe pain during the night and had chest CTA negative. This AM she had stress test which was negative. She is now afebrile and pain free and ready to discharge home. Discharge discussed with: patient, family - Time Spent with Patient Total time spent providing and/or coordinating discharge services: - Discharge Medications Prescriptions: Continued Topiramate [Topamax] 25 mg PO BID Tamsulosin [Flomax] 0.4 mg PO DAILY Solifenacin Succinate [Vesicare] 10 mg PO DAILY Simvastatin [Zocor] 40 mg PO HS Pilocarpine HCl [Salagen] 5 mg PO TID Pantoprazole Sodium 40 mg PO DAILY Metoclopramide HCl 5 mg PO TID Loratadine [Claritin] 10 mg PO DAILY Cyclosporine [Restasis] 1 drop OP BID Propranolol HCl [Innopran Xl] 80 mg PO DAILY Metformin HCl [Metformin ER Gastric] 500 mg PO BID Lisinopril [Zestril] 40 mg PO DAILY Gabapentin [Neurontin] 600 mg PO DAILY ALPRAZolam [Xanax 0.25 MG Tablet] 0.25 mg PO BID PRN #8 tablet PRN Reason: Anxiety Home Medications: Cyclosporine [Restasis] 1 drop OP BID 10/20/17 [History] Gabapentin [Neurontin] 600 mg PO DAILY 10/20/17 [History] Lisinopril [Zestril] 40 mg PO DAILY 10/20/17 [History] Loratadine [Claritin] 10 mg PO DAILY 10/20/17 [History] Metformin HCl [Metformin ER Gastric] 500 mg PO BID 10/20/17 [History] Metoclopramide HCl 5 mg PO TID 10/20/17 [History] Pantoprazole Sodium 40 mg PO DAILY 10/20/17 [History] Pilocarpine HCl [Salagen] 5 mg PO TID 10/20/17 [History] Propranolol HCl [Innopran Xl] 80 mg PO DAILY 10/20/17 [History] Simvastatin [Zocor] 40 mg PO HS 10/20/17 [History] Solifenacin Succinate [Vesicare] 10 mg PO DAILY 10/20/17 [History] Tamsulosin [Flomax] 0.4 mg PO DAILY 10/20/17 [History] Topiramate [Topamax] 25 mg PO BID 10/20/17 [History] ALPRAZolam [Xanax 0.25 MG Tablet] 0.25 mg PO BID PRN #8 tablet 10/21/17 [Rx] Allergies/Adverse Reactions: Allergy/AdvReac Type Severity Reaction Status Date / Time Chlorothiazide [From Diuril] AdvReac Migraine Verified 10/17/17 19:28 Date of admission: 03/31/19 13:29 Primary care physician: Ehsan Roman MD Discharging clinician: Bairon Santoro Anticipated date of discharge: 04/01/19 - Constitutional Vitals: Temp Pulse Resp BP Pulse Ox 97.7 F 71 17 167/72 96 04/01/19 10:24 04/01/19 10:24 04/01/19 10:24 04/01/19 10:24 04/01/19 10:24 General appearance: Present: A&O X 3 Exam: See below - Head Head exam: Present: normocephalic - Eye Eye exam: Present: EOMI, conjuntiva pink - ENT ENT exam: Present: mucous membranes moist - Respiratory Respiratory exam: Present: CTAB. Absent: rales, rhonchi, wheezes - Cardiovascular Cardiovascular exam: Present: RRR. Absent: tachycardia - GI/Abdominal GI/Abdominal exam: Present: soft. Absent: tenderness - Extremities Exam Extremities exam: Present: warm. Absent: tenderness - Neurological Exam Neurological exam: Present: alert, oriented X3 - Skin Skin exam: Present: dry, warm - Patient Status Disposition: Home, Self-Care Condition: Fair Functional capacity at discharge: independent ambulation Overall status at discharge: patient is progressing back to baseline - Discharge Instructions Instructions: Chest Pain (DC), Diabetes Mellitus Type 2 in Adults (DC), Anxiety (DC) Follow Up With: Ehsan Roman MD [Primary Care Provider] - (please call the office to schedule a hospital follow up appt for 7-10 days.) Additional Instructions: May take Protonix twice daily for a few days - Diet and Activity Activity: resume usual activities as tolerated Diet: advance to your usual diet
[2019-04-01] MEDS ORDERED: Cyclosporine [Restasis] 1 DROP OP SCH (21:00)
[2019-04-01] MEDS ORDERED: Topiramate 25 MG TABLET PO SCH (21:00)
[2019-04-02] MEDS ORDERED: Gabapentin 300 MG CAPSULE PO SCH (09:00)
[2019-04-02] MEDS ORDERED: Loratadine 10 MG TABLET PO SCH (09:00)
--- NOTE | 2019-04-02 15:10 | Electrocardiograph Report ---
[facility] Test Date: 2019-03-31 Pat Name: Ting Chavez Department: [id number] Room: 3B65 Gender: F Skin Piler: Jose : 1940 Requested By: Moises Perry Order Number: [id number] Reading MD: Javier Hernández Measurements Intervals [place] Rate: 59 P: 80 SC: 193 QRS: 54 QRSD: 128 T: 54 QT: 419 QTc: 419 Interpretive Statements SINUS BRADYCARDIA WITH OCCASIONAL SUPRAVENTRICULAR PREMATURE COMPLEXES MODERATE INTRAVENTRICULAR CONDUCTION DELAY INTERPRETATION BASED ON A DEFAULT AGE OF 40 YEARS Electronically Signed On 04-02-2019 15:08:58 EDT by Javier Hernández
== END 2019-04-01 15:26 | disposition home or self-care (01) ==
LOC: 3BNU 07:35 → EMEROOARM 07:35 → SUATTDRO 13:29 → 3BNU 13:42
PROVIDERS: ADMIT Internal Medicine Nephrology; ATTEND Internal Medicine